=== PATIENT | female | born 1970 | race Caucasian/White ===

== ENCOUNTER → 2017-12-07 06:29 | Outpatient (CLI) | payer OTHER, SELFPAY ==
--- NOTE | 2017-12-07 | DI.CT.S_ITS ---
PROCEDURE: CT ANGIO CHEST PE PROTOCOL INDICATIONS: CHEST PAIN TECHNIQUE: After the administration of intravenous contrast, 2 mm thick sections acquired from the pulmonary apices to the posterior costophrenic angles. 3-dimensional maximum intensity projection (MIP) coronal and sagittal reformats were then acquired through the thorax. For radiation dose reduction, the following was used: automated exposure control, adjustment of mA and/or kV according to patient size. COMPARISON: formerly [facility], CHEST 2 VIEW, 07/02/2017, 10:35. FINDINGS: Image quality: Excellent. Pulmonary arteries: Pulmonary arteries are normal in size, and demonstrate no intraluminal filling defects to suggest central pulmonary embolism. Lungs and pleura: Lungs are clear. No pleural effusions or pneumothorax. Central and peripheral airways are patent. Mediastinum: Heart size is normal, without pericardial effusion. No mediastinal or hilar adenopathy. Thoracic aorta is normal in caliber and enhancement. Esophagus is normal in caliber, without hiatal hernia. Bones and chest wall: No suspicious bony lesions. Ribs and thoracic spine appear intact throughout. Thyroid gland appears normal. No axillary or supraclavicular adenopathy. Abdomen: Visualized upper abdominal solid organs appear normal in the early arterial phase of enhancement. IMPRESSION: Source of chest pain is not seen. No pulmonary embolus found. Dictated by: Lawson Randle M.D. on 12/07/2017 at 9:36 Approved by: Lawson Randle M.D. on 12/07/2017 at 9:38
== END ==
PROVIDERS: Visit Provider Internal Medicine
DX: R07.9 Chest pain, unspecified (principal)
CPT/HCPCS: 71275; Q9967

== ENCOUNTER → 2018-03-06 10:26 | Outpatient (CLI) | payer OTHER, SELFPAY ==
--- NOTE | 2018-03-06 | DI.RAD.S_ITS ---
PROCEDURE: XR FOOT LT MIN 3V INDICATIONS: PAIN IN LEFT FOOT TECHNIQUE: 3 views of the foot were acquired. COMPARISON: None. FINDINGS: Bones: A subtle lucency projects in the base of the fifth metatarsal. Elsewhere, no fractures or dislocations. No suspicious bony lesions. Minimal plantar and posterior calcaneal spurring. There is questionable flattening deformity of the second metatarsal head articular surface, with subchondral curvilinear sclerosis which is quite faint therefore recommend close clinical correlation Soft tissues: No tibiotalar joint effusion. Achilles tendon appears normal. IMPRESSION: Subtle lucency projecting in the base of the fifth metatarsal raising the possibility of nondisplaced possibly incomplete fracture. Please correlate clinically with point tenderness. Mild irregularity of the second metatarsal head articular surface as above, raising possibility of early Freiberg's infraction although please correlate clinically since the radiographic appearance is quite subtle, and technically indeterminate If the patient's symptoms do not improve, consider further evaluation with noncontrast MRI. Dictated by: Gilmer Frost M.D. on 03/06/2018 at 13:17 Approved by: Gilmer Frost M.D. on 03/06/2018 at 13:21
--- NOTE | 2018-03-06 | DI.RAD.S_ITS ---
PROCEDURE: XR ANKLE LT MIN 3V INDICATIONS: PAIN IN LEFT FOOT TECHNIQUE: 3 views of the ankle were acquired. COMPARISON: None. FINDINGS: Bones: No fractures or dislocations. Ankle mortise is normally aligned. No suspicious bony lesions. Minimal posterior and plantar calcaneal spurring Soft tissues: No tibiotalar joint effusion. Achilles tendon appears normal. IMPRESSION: Minimal plantar and posterior calcaneal spurring. Dictated by: Gilmer Frost M.D. on 03/06/2018 at 13:14 Approved by: Gilmer Frost M.D. on 03/06/2018 at 13:17
== END ==
PROVIDERS: Visit Provider Internal Medicine
DX: M79.672 Pain in left foot (principal)
CPT/HCPCS: 73610; 73630

== ENCOUNTER → 2018-10-23 10:33 | Outpatient (CLI) | payer OTHER, SELFPAY ==
--- NOTE | 2018-10-23 10:35 | DI.RAD.S_ITS ---
PROCEDURE: XR HIP W PEL IF DONE RT 2V INDICATIONS: right hip pain TECHNIQUE: AP pelvis with lateral view(s) of the right hip(s). COMPARISON: [facility], CR, [id number] W PEL IF PERFORMED, 01/10/2017, 15:03. FINDINGS: Bones: No fractures or dislocations. Pelvic ring appears intact. No suspicious bony lesions. No significant osteophytic spurring is seen but there is a slight difference in hip joint interspace width when comparing right to left. The right hip shows slight thinning Soft tissues: The visualized bowel gas pattern is normal. No suspicious soft tissue calcifications. IMPRESSION: Slight thinning of the joint interspace when on the right when compared to the left. This might represent evidence of minimal degenerative osteoarthritic change but it has not worsened from 01/10/17. Dictated by: Lawson Randle M.D. on 10/23/2018 at 11:12 Approved by: Lawson Randle M.D. on 10/23/2018 at 11:14
== END ==
PROVIDERS: PCP Nurse Practitioner Family; Visit Provider Nurse Practitioner Family
DX: M25.551 Pain in right hip (principal)
CPT/HCPCS: 73502

== ENCOUNTER → 2019-03-15 08:29 | Outpatient (CLI) | payer OTHER, SELFPAY ==
--- NOTE | 2019-03-15 08:31 | DI.MG.S_ITS ---
BILATERAL DIGITAL SCREENING MAMMOGRAM 3D/2D WITH CAD: 03/15/2019 CLINICAL: Routine screening. Family history of breast cancer. Comparison is made to exam dated: 06/11/2013 mammogram - [facility]. The tissue of both breasts is heterogeneously dense. This may lower the sensitivity of mammography. Current study was also evaluated with a Computer Aided Detection (CAD) system. No significant masses, calcifications, or other findings are seen in either breast. There has been no significant interval change. IMPRESSION: NEGATIVE There is no mammographic evidence of malignancy. A 1 year screening mammogram is recommended. This exam was interpreted at Station ID: [id number]. NOTE: For mammograms, a report in lay terms will be sent to the patient. Approximately 15% of breast malignancies will not be visualized mammographically. In the management of a palpable breast mass, a negative mammogram must not discourage biopsy of a clinically suspicious lesion. Electronically Signed By: Deja west/bright:03/17/2019 14:54:29 letter sent: Normal Exam ACR BI-RADS Category 1: Negative 3341F
== END ==
PROVIDERS: PCP Internal Medicine; Visit Provider Orthopaedic Surgery
DX: Z12.31 Encounter for screening mammogram for malignant neoplasm of breast (principal); Z80.3 Family history of malignant neoplasm of breast
CPT/HCPCS: 77063; 77067

== ENCOUNTER → 2020-02-23 12:03 | Outpatient (CLI) | payer OTHER, SELFPAY ==
[2020-02-23 12:32] LABS: Add Manual Diff / Slide Review NO; Basophils Absolute Auto 0 /uL (0-100); Basophils Percent Auto 0.7 % (0-2); Eosinophils Absolute Auto 300 /uL (0-450); Eosinophils Percent Auto 5.3 % (2-4); Hematocrit 35.6 % (36-46); Hemoglobin 11.8 g/dL (12.0-16.0); Lymphocytes Absolute Auto 1500 /uL (1100-4500); Mean Corpuscular HGB Conc 33.2 % (30-36); Mean Corpuscular Hemoglobin 28.5 PG (26-34); Mean Corpuscular Volume 86.1 fL (80-100); Monocytes Absolute Auto 300 /uL (0-900); Monocytes Percent Auto 5.3 % (3-14); Neutrophils Absolute Auto 4200 /uL (1500-7000); Neutrophils Percent Auto 65.7 % (50-75); Platelet Count 218 X10^3/uL (150-400); Red Blood Cell Count 4.14 X10^6/uL (4.0-5.2); Red Cell Distribution Width 16.2 % (11.6-14.8); White Blood Cell Count 6.5 X10^3/uL (4.5-11.0)
[2020-02-23 12:52] LABS: Alanine Aminotransferase 29 IU/L (<35); Albumin 4.4 g/dL (3.5-5.0); Albumin Globulin Ratio 1.3 (1.0-2.8); Alkaline Phosphatase 73 U/L (38-126); Aspartate Aminotransferase 29 IU/L (14-36); BUN Creatinine Ratio 21.4 (6-22); Bilirubin Total 0.4 mg/dL (0.2-1.3); Blood Urea Nitrogen 12 mg/dL (7-17); Calcium 9.4 mg/dL (8.4-10.2); Carbon Dioxide 29 mmol/L (22-32); Chloride 103 mmol/L (98-107); Estimated Glomerular Filt Rate > 60.0 mL/min (>60); Globulin 3.3 g/dL (1.7-4.1); Glucose 90 mg/dL (70-100); HEMOLYSIS < 15 (0-50); Potassium 4.4 mmol/L (3.4-5.1); Sodium 139 mmol/L (137-145); Total Protein 7.7 g/dL (6.3-8.2)
[2020-02-23 13:37] LABS: Pregnancy Test Serum,Qual Negative (Negative); UR Morphine/Opiate cutoff 300 Negative (Negative); Ur Creatinine Normal (Normal); Ur Specific Gravity Normal (Normal); Urine Amphetamines Negative (Negative); Urine Barbiturates Negative (Negative); Urine Benzodiazepines Negative (Negative); Urine Cocaine Negative (Negative); Urine MDMA Negative (Negative); Urine Methadone Negative (Negative); Urine Methamphetamines Negative (Negative); Urine Oxycodone Negative (Negative); Urine Phencyclidine Negative (Negative); Urine Tetrahydrocannabinol Positive (Negative); Urine Tricyclic Antidepressant Negative (Negative); Urine pH Normal (Normal)
[2020-02-23 15:08] LABS: Free T4, Direct Thyroxine 0.96 ng/dL (0.78-2.19)
[2020-02-23 15:21] LABS: Thyroid Stimulating Hormone 1.57 uIU/mL (0.47-4.68)
== END ==
PROVIDERS: PCP Family Medicine; Referring Provider Psychiatry & Neurology Psychiatry; Visit Provider Psychiatry & Neurology Psychiatry
DX: F33.2 Major depressive disorder, recurrent severe without psychotic features (principal)
CPT/HCPCS: 36415; 80053; 80305; 84439; 84443; 84703; 85025

== ENCOUNTER → 2021-09-30 09:14 | Outpatient (CLI) | payer OTHER, MEDICAID, SELFPAY ==
[2021-09-30 12:35] LABS: COVID-19 CEPHEID PCR (VTM/NP) Negative (Negative)
== END ==
PROVIDERS: Visit Provider Family Medicine Sleep Medicine
DX: Z20.822 Contact with and (suspected) exposure to COVID-19 (principal)
CPT/HCPCS: C9803; U0003; U0005

== ENCOUNTER → 2022-02-18 12:23 | Outpatient (CLI) | payer OTHER, MEDICAID, SELFPAY ==
--- NOTE | 2022-02-18 12:27 | DI.CT.S_ITS ---
PROCEDURE: CT FOOT LEFT WITHOUT CON INDICATIONS: Pain in lateral left foot TECHNIQUE: Noncontrast 1-1.5 mm axial sections acquired from above the tibiotalar joint to the bottom of the calcaneus, with coronal and sagittal reformats. COMPARISON: None. FINDINGS: Image quality: Excellent. Bones: No fractures or dislocation. No discrete bony erosions or periosteal reaction. The joint spaces appear preserved. Soft tissues: The visualized flexor, extensor, peroneal, and Achilles tendons appear intact. The visualized musculature appears preserved. No suspicious soft tissue calcifications. IMPRESSION: 1. No definite acute abnormality to correlate with patient's pain symptoms. If clinical concern persists, consider further evaluation with MRI. Dictated by: Silvestre Crockett M.D. on 02/20/2022 at 2:38 Approved by: Silvestre Crockett M.D. on 02/20/2022 at 2:43
--- NOTE | 2022-02-18 12:27 | DI.CT.S_ITS ---
PROCEDURE: CT HAND RIGHT WITHOUT CON INDICATIONS: Pain in right [id number]/4th MC TECHNIQUE: Noncontrast 1 mm axial sections acquired through the carpal bones, with coronal and sagittal reformats. COMPARISON: [facility], CR, XR HAND 3+ VIEWS RIGHT, 08/12/2021, 7:58. FINDINGS: Image quality: Excellent. Bones: No fractures or dislocation. No discrete bony erosions or periosteal reaction. Joint spaces appear preserved. No suspicious intraosseous lesions. Soft tissues: No suspicious soft tissue calcifications or discrete mass lesions. Visualized musculature appears preserved. The visualized flexor and extensor tendons appear intact. IMPRESSION: 1. No definite acute abnormality to correlate with patient's pain in the 3rd and 4th metacarpals. If clinical concern persists, consider further evaluation with MRI. Dictated by: Silvestre Crockett M.D. on 02/20/2022 at 2:32 Approved by: Silvestre Crockett M.D. on 02/20/2022 at 2:37
== END ==
PROVIDERS: PCP Internal Medicine; Referring Provider Internal Medicine; Visit Provider Internal Medicine
DX: M79.641 Pain in right hand (principal); M79.672 Pain in left foot
CPT/HCPCS: 73200; 73700

== ENCOUNTER → 2022-03-02 15:20 | Outpatient (CLI) | payer OTHER, MEDICAID, SELFPAY ==
--- NOTE | 2022-03-02 | DI.MRI.S_ITS ---
PROCEDURE: MR CERVICAL SPINE WO CON INDICATIONS: Other cervical disc degeneration TECHNIQUE: Noncontrast sagittal T1 spin echo and T2 fast spin echo, sagittal STIR, foraminal oblique sagittal T2 fast spin echo, and axial gradient echo or T2 fast spin echo through the cervical spine. COMPARISON: [facility], MR, C-SPINE WITHOUT CONTRAST, 02/16/2016, 9:00. FINDINGS: Image quality: Excellent. Alignment and Curvature: There is trace retrolisthesis of C6 on C7. Bone Marrow: Marrow demonstrates normal overall signal. Spinal Cord: Visualized spinal cord has normal size and signal. No cerebellar tonsillar herniation. Paraspinous Soft Tissues: No paravertebral masses. Prevertebral soft tissues are normal in thickness. Discs: Mild scattered disc desiccation most notable at C5-6. C2-C3: No disc bulge, spinal stenosis or foraminal narrowing. No interval change. C3-C4: No disc bulge, spinal stenosis or foraminal narrowing. No interval change. C4-C5: No disc bulge or spinal stenosis. Trace left foraminal narrowing slightly progressive. C5-C6: Prominent motion is present at this level limiting evaluation. There is appearance of disc bulge with overall appearance of moderate spinal stenosis. Foramina are poorly visualized secondary to motion. However, there is felt to be at least moderate to severe bilateral foraminal narrowing. C6-C7: Prominent motion is present this region limiting evaluation. Disc bulge is present with appearance likely [id number] spinal stenosis. Foramina are poorly visualized. However, there is felt to be likely bilateral foraminal narrowing at least moderate to severe on the left and likely [id number] on the right. C7-T1: No disc bulge, spinal stenosis or foraminal narrowing. IMPRESSION: Multilevel degenerative changes as above, relatively stable compared to prior exam. Dictated by: Darya Mckinley M.D. on 03/02/2022 at 21:59 Approved by: Darya Mckinley M.D. on 03/02/2022 at 22:02
== END ==
PROVIDERS: PCP Internal Medicine; Referring Provider Internal Medicine; Visit Provider Internal Medicine
DX: M47.812 Spondylosis without myelopathy or radiculopathy, cervical region (principal); M50.30 Other cervical disc degeneration, unspecified cervical region; M48.02 Spinal stenosis, cervical region
CPT/HCPCS: 72141

== ENCOUNTER → 2022-10-11 09:26 | Outpatient (CLI) | payer OTHER, MEDICAID, SELFPAY ==
--- NOTE | 2022-10-11 | DI.US.S_ITS ---
LIMITED ULTRASOUND OF LEFT BREAST AND AXILLA: 10/11/2022 CLINICAL: Additional views of left breast. Comparison is made to exams dated: 10/11/2022 ultrasound, 10/11/2022 mammogram - [facility], 09/20/2022 mammogram - [facility], and 03/15/2019 mammogram - [facility]. Color flow and real-time ultrasound of the left breast were performed. Galarza scale images of the real-time examination were reviewed. There is a 0.5 cm x 0.4 cm x 0.3 cm oval cyst in the left breast at 1 o'clock middle depth 4 cm from the nipple. This oval cyst is hypoechoic with internal echoes. This correlates with mammography findings. Color flow imaging demonstrates that there is no vascularity present. IMPRESSION: PROBABLY BENIGN The 0.5 cm complicated cyst in the left breast 1:00 is probably benign. A follow-up ultrasound in 6 months is recommended to demonstrate stability. Exam findings were conveyed to the patient. This exam was interpreted at Station ID: [id number]. Electronically Signed By: Jimy Tellez M.D. [facility]/:10/11/2022 11:24:40 letter sent: Followup Recommended Ultrasound BI-RADS: 3 Probably benign
--- NOTE | 2022-10-11 | DI.MG.S_ITS ---
UNILATERAL LEFT DIGITAL DIAGNOSTIC MAMMOGRAM 3D/2D WITH ADDITIONAL VIEWS: 10/11/2022 CLINICAL: Additional evaluation requested from prior study. Comparison is made to exams dated: 09/20/2022 mammogram - [facility], 03/15/2019 mammogram - [facility], and 06/11/2013 mammogram - [facility]. There are scattered areas of fibroglandular density in the left breast (category b / 25%-50% glandular tissue). There is a new 0.4 cm oval focal asymmetry with a circumscribed margin in the left breast at 1 o'clock middle depth. No other significant masses or calcifications are seen in the breast. IMPRESSION: INCOMPLETE: NEEDS ADDITIONAL IMAGING EVALUATION The new 0.4 cm oval focal asymmetry in the left breast resembles a cyst or a lymph node and is indeterminate. A targeted ultrasound is recommended and will immediately follow. Based on the Tyrer Cuzick model (a risk assessment model) the patient's lifetime risk is 7.6% and her 10 year risk is 1.7%. According to the ACR, ACS, and NCCN guidelines, an annual breast MRI exam along with mammogram is recommended if the patient's lifetime risk is 20% or greater. This exam was interpreted at Station ID: [id number]. NOTE: For mammograms, a report in lay terms will be sent to the patient. Approximately 15% of breast malignancies will not be visualized mammographically. In the management of a palpable breast mass, a negative mammogram must not discourage biopsy of a clinically suspicious lesion. Electronically Signed By: Jimy Tellez M.D. [facility]/:10/11/2022 10:09:42 ACR BI-RADS Category 0: Incomplete 3340F
== END ==
PROVIDERS: Family Provider Internal Medicine; PCP Internal Medicine; Referring Provider Internal Medicine; Visit Provider Internal Medicine
DX: R92.8 Other abnormal and inconclusive findings on diagnostic imaging of breast (principal)
CPT/HCPCS: 76642; 77065; G0279

== ENCOUNTER → 2023-05-16 12:18 | Outpatient (CLI) | payer OTHER, MEDICAID, SELFPAY ==
--- NOTE | 2023-05-16 | DI.US.S_ITS ---
LIMITED ULTRASOUND OF LEFT BREAST: 05/16/2023 CLINICAL: Patient returns today to evaluate a focal asymmetry in the left breast. Comparison is made to exams dated: 10/11/2022 ultrasound, 10/11/2022 mammogram - [facility], 09/20/2022 mammogram - [facility], and 03/15/2019 mammogram - [facility]. Color flow ultrasound of the left breast 1 o'clock region was performed. Galarza scale images of the real-time examination were reviewed. There is a 0.3 cm x 0.2 cm x 0.1 cm oval cyst in the left breast at 1 o'clock middle depth 4 cm from the nipple. This oval cyst is hypoechoic with internal echoes. This abnormality is decreased in size. Color flow imaging demonstrates that there is no vascularity present. IMPRESSION: PROBABLY BENIGN The 0.3 cm x 0.2 cm x 0.1 cm oval cyst in the left breast is probably benign. A follow-up mammogram and an ultrasound in 6 months is recommended to demonstrate stability. This exam was interpreted at Station ID: [id number]. Electronically Signed By: Marcell cobos/bright:05/16/2023 20:29:41 letter sent: Followup Recommended Ultrasound BI-RADS: 3 Probably benign
== END ==
PROVIDERS: Family Provider Internal Medicine; PCP Internal Medicine; Referring Provider Internal Medicine; Visit Provider Internal Medicine
DX: N60.02 Solitary cyst of left breast (principal)
CPT/HCPCS: 76642

== ENCOUNTER → 2023-09-05 06:41 | Outpatient (CLI) | payer MEDICARE, MEDICAID, SELFPAY ==
--- NOTE | 2023-09-05 06:44 | DI.ECHO.S_ITS ---
[place] [facility] : : [address] : : [place] : : [id number] : : Phone: [phone] Echocardiogram Report + + :Name: CHALINO LANDA Study Date: 09/05/2023 Height: 64 in : :[facility] ReadingLocation: Weight: 207 lb : : Gender: Female BSA: 2.0 m2 : :: 1970 Age: 52 yrs BP: 118/82 mmHg: :Reason For Study: CHEST PAIN : :Ordering Physician: JOANIE, : :CATHERINE Martinez Performed By: Wandy Sahu : :Referring: CATHERINE EMERSON : + + Interpretation Summary The ejection fraction is estimated to be 55-60%. Diastolic parameters suggest probable normal left ventricular diastolic function and normal filling pressures. The right ventricle is normal in size and function. No significant valvular abnormalities. Pulmonary artery pressures cannot be estimated because of the lack of a measurable TR jet velocity but the IVC suggests a CVP of around 3 mmHg. Procedure: A two-dimensional transthoracic echocardiogram with color flow and Doppler was performed. The study quality was technically adequate. There is no prior echocardiogram noted for this patient. The patient was in sinus rhythm with heart rates between 58-62 bpm during the exam. Left Ventricle: The left ventricle is normal in size. Left ventricular wall thickness is at the upper limits of normal. The ejection fraction is estimated to be 55-60%. Diastolic parameters suggest probable normal left ventricular diastolic function and normal filling pressures. Right Ventricle: The right ventricle is normal in size and function. Atria: The left atrial size is normal. Right atrial size is normal. There is no Doppler evidence for an interatrial shunt. Mitral Valve: The mitral valve is normal in structure and function. There is trace mitral regurgitation. Aortic Valve: The aortic valve is trileaflet. The aortic valve opens well. There is no aortic valve stenosis. No aortic regurgitation is present. Tricuspid Valve: The tricuspid valve is normal in structure and function. There is trace tricuspid regurgitation. Pulmonary artery pressures cannot be estimated because of the lack of a measurable TR jet velocity but the IVC suggests a CVP of around 3 mmHg. Pulmonic Valve: The pulmonic valve leaflets are thin and pliable; valve motion is normal. There is mild pulmonic regurgitation. Great Vessels: The aortic root is normal size. The dimensions of the ascending aorta are normal. The IVC is of normal diameter and collapses greater than 50% with a sniff. This suggests a low right atrial pressure of 3 mm Hg. Pericardium/ Pleura There is no pericardial effusion. There is no pleural effusion. MMode/2D Measurements & Calculations LVIDd: 4.8 cm LVOT diam: 2.0 cm LVIDs: 3.4 cm Ao root diam: 3.2 cm FS: 29.0 % asc Aorta Diam: 3.6 cm IVSd: 1.0 cm Ao Arch Diam (Prox Trans): 3.0 cm LVPWd: 1.0 cm LV mendez. diameter/BSA (cm/m^2): 2.4 LV sys. diameter/BSA (cm/m^2): 1.7 LA A2 area: 18.4 cm2 RA long axis: 4.8 cm LA A4 area: 16.8 cm2 RA area: 14.3 cm2 LA length (vol): 5.2 cm RA vol: 36.1 ml LA vol: 50.1 ml RA : 18.2 ml/m2 LA vol index: 25.2 ml/m2 IVC diam: 1.7 cm RVD1 (basal): 3.4 cm RVD2 (mid): 3.3 cm TAPSE: 1.9 cm Doppler Measurements & Calculations Ao V2 max: 123.3 cm/sec LVOT Max Mynor: 104.8 cm/sec Ao V2 mean: 84.6 cm/sec LV V1 max P.4 mmHg Ao max P.1 mmHg LV V1 VTI: 26.7 cm Ao mean P.2 mmHg REG(I,D): 2.9 cm2 Ao V2 VTI: 29.9 cm REG(V,D): 2.8 cm2 sev ratio: 0.89 REG indexed to BSA (cm^2/m^2): 1.5 MV E max mynor: 56.4 cm/sec PA V2 max: 87.9 cm/sec MV A max mynor: 44.8 cm/sec PA V2 mean: 63.8 cm/sec MV E/A: 1.3 PA mean P.8 mmHg Med Peak E' Mynor: 6.9 cm/sec PA pr(Accel): 22.5 mmHg E/E' med: 8.2 Lat Peak E' Mynor: 10.4 cm/sec E/E' lat: 5.4 E/e' average: 6.8 MV dec time: 0.24 sec SV(LVOT): 86.4 ml Reading Physician:11:29 AM
== END ==
LOC: ECHO 06:41
PROVIDERS: Family Provider Internal Medicine; PCP Internal Medicine; Referring Provider Internal Medicine Cardiovascular Disease; Visit Provider Internal Medicine Cardiovascular Disease
DX: I37.1 Nonrheumatic pulmonary valve insufficiency (principal); R07.9 Chest pain, unspecified
CPT/HCPCS: 93306

== ENCOUNTER → 2023-10-26 09:39 | Outpatient (CLI) | payer MEDICARE, MEDICAID, SELFPAY ==
--- NOTE | 2023-10-26 09:43 | DI.MG.S_ITS ---
BILATERAL DIGITAL DIAGNOSTIC MAMMOGRAM 3D/2D: 10/26/2023 CLINICAL: Patient returns for a 6 month follow up of the left breast, due for bilateral exam. Comparison is made to exams dated: 10/11/2022 mammogram - [facility], 09/20/2022 mammogram - [facility], 03/15/2019 mammogram, and 05/16/2023 ultrasound - [facility]. There are scattered areas of fibroglandular density in both breasts (category b / 25%-50% glandular tissue). In left breast, there is a 0.4 cm oval focal asymmetry at 1 o'clock middle depth, which is less prominent since 09/20/2022. No other significant masses, calcifications, or other findings are seen in either breast. IMPRESSION: INCOMPLETE: NEEDS ADDITIONAL IMAGING EVALUATION Left breast 0.4 cm focal asymmetry at 1 o'clock middle depth, less prominent since September 2022. An ultrasound is recommended for further evaluation and is scheduled to immediately follow this examination. Based on the Tyrer Cuzick model (a risk assessment model) the patient's lifetime risk is 7.7% and her 10 year risk is 1.8%. According to the ACR, ACS, and NCCN guidelines, an annual breast MRI exam along with mammogram is recommended if the patient's lifetime risk is 20% or greater. This exam was interpreted at Station ID: [id number]. NOTE: For mammograms, a report in lay terms will be sent to the patient. Approximately 15% of breast malignancies will not be visualized mammographically. In the management of a palpable breast mass, a negative mammogram must not discourage biopsy of a clinically suspicious lesion. Electronically Signed By: Brooklyn Argueta M.D., Ph.D. eb/:10/30/2023 02:35:00 Entry: - 10/30/2023 16:22:35 ACR BI-RADS Category 0: Incomplete 3340F
--- NOTE | 2023-10-26 09:44 | DI.US.S_ITS ---
LIMITED ULTRASOUND OF LEFT BREAST AND AXILLA: 10/26/2023 CLINICAL: Patient returns for short term follow-up of a probably benign mass in the left breast. Comparison is made to exams dated: 10/26/2023 mammogram, 05/16/2023 ultrasound, 10/11/2022 ultrasound, 10/11/2022 mammogram - [facility], and 09/20/2022 mammogram - [facility]. Real-time ultrasound of the left breast 1 o'clock, and axilla regions was performed. Galarza scale images of the real-time examination were reviewed. There is a 0.2 cm x 0.2 cm x 0.2 cm oval hypoechoic mass with circumscribed margins at 1 o'clock, 5 cm from the nipple (previously described at 4 cm from the nipple). This corresponds to the mammographic finding. The finding has decreased in size since September 2022. Color flow imaging demonstrates that there is no vascularity present. IMPRESSION: PROBABLY BENIGN Left breast 0.2 cm oval mass at 1 o'clock, decreased since September 2022. Finding is probably benign. Recommend follow-up left breast mammogram and ultrasound in 12 months to demonstrate 2 year stability. Patient will be due for bilateral mammogram at that time. Findings and recommendations were conveyed to the patient during today's evaluation. This exam was interpreted at Station ID: [id number]. Electronically Signed By: Brooklyn Argueta M.D., Ph.D. eb/:10/30/2023 02:35:48 letter sent: Followup Recommended Ultrasound BI-RADS: 3 Probably benign
[2023-10-26 10:36] LABS: Add Manual Diff / Slide Review NO; Basophils Absolute Auto 0 /uL (0-100); Basophils Percent Auto 0.7 % (0-2); Eosinophils Absolute Auto 800 /uL (0-450); Hematocrit 40.2 % (36-46); Hemoglobin 13.6 g/dL (12.0-16.0); Lymphocytes Absolute Auto 1800 /uL (1100-4500); Lymphocytes Percent Auto 29.7 % (25-40); Mean Corpuscular HGB Conc 33.7 % (30-36); Mean Corpuscular Hemoglobin 28.9 PG (26-34); Mean Corpuscular Volume 85.7 fL (80-100); Monocytes Absolute Auto 400 /uL (0-900); Monocytes Percent Auto 6.4 % (3-14); Neutrophils Absolute Auto 3100 /uL (1500-7000); Neutrophils Percent Auto 50.2 % (50-75); Platelet Count 213 X10^3/uL (150-400); Red Blood Cell Count 4.69 X10^6/uL (4.0-5.2); Red Cell Distribution Width 13.6 % (11.6-14.8); White Blood Cell Count 6.1 X10^3/uL (4.5-11.0)
[2023-10-26 10:42] LABS: Hemoglobin A1C% w Est Avg Glu 5.5 % (4.0-6.0)
[2023-10-26 11:06] LABS: Alanine Aminotransferase 60 IU/L (<35); Albumin 4.3 g/dL (3.5-5.0); Albumin Globulin Ratio 1.6 (1.0-2.8); Alkaline Phosphatase 75 U/L (38-126); Aspartate Aminotransferase 43 IU/L (14-36); BUN Creatinine Ratio 22.4 (6-22); Bilirubin Total 0.4 mg/dL (0.2-1.3); Blood Urea Nitrogen 15 mg/dL (7-17); Carbon Dioxide 29 mmol/L (22-32); Chloride 106 mmol/L (98-107); Cholesterol 225 mg/dL (140-199); Estimated Glomerular Filt Rate > 60 mL/min (>60); Globulin 2.7 g/dL (1.7-4.1); Glucose 92 mg/dL (70-100); HDL Cholesterol 46 mg/dL (40-60); HEMOLYSIS < 15 (0-50); LDL Cholesterol Calculated 136 mg/dL (<100); Magnesium 1.9 mg/dL (1.6-2.3); Potassium 4.1 mmol/L (3.4-5.1); Sodium 141 mmol/L (137-145); Triglycerides 214 mg/dL (35-150)
[2023-10-26 11:26] LABS: TSH w/ Reflex to FT4 0.96 uIU/mL (0.47-4.68)
== END ==
LOC: MAMMO 09:41
PROVIDERS: Family Provider Internal Medicine; PCP Internal Medicine; Referring Provider Internal Medicine; Visit Provider Internal Medicine
DX: R92.8 Other abnormal and inconclusive findings on diagnostic imaging of breast (principal); N63.21 Unspecified lump in the left breast, upper outer quadrant; N60.02 Solitary cyst of left breast; R92.323 Mammographic fibroglandular density, bilateral breasts; R00.2 Palpitations; Z13.1 Encounter for screening for diabetes mellitus; I10 Essential (primary) hypertension; E78.5 Hyperlipidemia, unspecified
CPT/HCPCS: 36415; 76642; 77066; 80053; 80061; 83036; 83735; 84443; 85025; G0279

== ENCOUNTER → 2024-01-08 07:35 | Outpatient (CLI) | payer MEDICARE, MEDICAID, SELFPAY ==
--- NOTE | 2024-01-08 | DI.NM.S_ITS ---
PROCEDURE: NM EXERCISE TREADMILL NON NUC COMPARISON: None. INDICATIONS: CHEST PAIN FINDINGS: The patient exercised for 7 minutes and 1 second reching 86% of maximum predicted heart rate. Appropriate BP response to exercise. 7MEs, TITO +9%. No angina, no ST changes, and no ectopy during exercise or recovery. IMPRESSION: Low risk, normal treadmill ECG only stress test with fair exercise tolerance (TITO +9%). Dictated by: Liliane Quijano MD on 01/09/2024 at 14:42 Approved by: Liliane Quijano MD on 01/09/2024 at 14:46
== END ==
PROVIDERS: Family Provider Internal Medicine; PCP Internal Medicine; Referring Provider Internal Medicine Cardiovascular Disease; Visit Provider Internal Medicine Cardiovascular Disease
DX: R07.9 Chest pain, unspecified (principal)
CPT/HCPCS: 93017

== ENCOUNTER → 2024-10-24 08:28 | Outpatient (CLI) | payer MEDICARE, MEDICAID, SELFPAY ==
--- NOTE | 2024-10-24 08:30 | DI.US.S_ITS ---
US breast LT limited, MM diagnostic mammo BI: 10/24/2024 BI-RADS: 1 CLINICAL: 53-year old female for bilateral diagnostic mammogram and left diagnostic breast ultrasound that is a follow-up to ultrasound, left on 10/26/2023. Tyrer- Cuzick lifetime risk of 7.8%. No personal or first-degree family history of breast cancer. Current reported family history of breast cancer: maternal aunt. PRIOR EXAMS 10/26/2023, 05/16/2023, 10/11/2022, 09/20/2022, 08/01/2022, 03/15/2019. MAMMOGRAPHY TECHNIQUE: 2D and 3D (tomosynthesis) digital mammographic views obtained, with additional images as needed for full coverage. Current study was also evaluated with a Computer Aided Detection (CAD) system. ULTRASOUND TECHNIQUE: Real-time frederick scale imaging of the area of clinical interest was performed with image documentation. TARGETED Left Breast Ultrasound: Real-time ultrasound exam was performed focused to area of clinical and/or imaging concern. DENSITY B. There are scattered areas of fibroglandular density. TISSUE COMPOSITION Left: Upper Outer at 1:00, 4 cm from nipple: (a) Homogeneous fatty. MAMMOGRAPHY FINDINGS Right: No suspicious mass, asymmetry, microcalcification, or other abnormality seen. Left: Upper Outer at 1:00, Middle depth: Previously described 4mm oval focal asymmetry decreased in size on follow up evaluations is not definitively seen on today's mammogram and presumably resolved. ULTRASOUND FINDINGS Left: Upper Outer at 1:00, 4 cm from nipple: Previously seen circumscribed hypoechoic mass is no longer visualized and is consistent with a benign process. There is no suspicious sonographic finding. No suspicious sonographic finding present. IMPRESSION: * No evidence of malignancy. RECOMMENDATIONS Bilateral * Annual screening mammography. COMMENTS: Findings and recommendations were conveyed to the patient during today's evaluation. OVERALL ASSESSMENT CATEGORY BI-RADS-1: Negative. The [employer] recommends annual screening mammography beginning at age 40 for women with average risk of breast cancer. ELECTRONICALLY SIGNED: Mazin Freed M.D. on 10/24/2024 at 10:21:26 AM PT Interpreting Station ID: [id number]
--- NOTE | 2024-10-25 10:28 | DI.MG.S_ITS ---
Patient Name: CHALINO LANDA date: 1970 Sex: F Attending Physician: George Indications: Date: 10/24/2024 10:21 At the request of: ROS REAGAN Procedure: MM diagnostic mammo BI US breast LT limited, MM diagnostic mammo BI: 10/24/2024 BI-RADS: 1 CLINICAL: 53-year old female for bilateral diagnostic mammogram and left diagnostic breast ultrasound that is a follow-up to ultrasound, left on 10/26/2023. Tyrer-Cuzick lifetime risk of 7.8%. No personal or first-degree family history of breast cancer. Current reported family history of breast cancer: maternal aunt. PRIOR EXAMS 10/26/2023, 05/16/2023, 10/11/2022, 09/20/2022, 08/01/2022, 03/15/2019. MAMMOGRAPHY TECHNIQUE: 2D and 3D (tomosynthesis) digital mammographic views obtained, with additional images as needed for full coverage. Current study was also evaluated with a Computer Aided Detection (CAD) system. ULTRASOUND TECHNIQUE: Real-time frederick scale imaging of the area of clinical interest was performed with image documentation. TARGETED Left Breast Ultrasound: Real-time ultrasound exam was performed focused to area of clinical and/or imaging concern. DENSITY B. There are scattered areas of fibroglandular density. TISSUE COMPOSITION Left: Upper Outer at 1:00, 4 cm from nipple: (a) Homogeneous fatty. MAMMOGRAPHY FINDINGS Right: No suspicious mass, asymmetry, microcalcification, or other abnormality seen. Continued Report - Page 2 of 2 Patient Name: CHALINO LANDA date: 1970 Sex: F Attending Physician: George Indications: Date: 10/24/2024 10:21 At the request of: ORS REAGAN Procedure: MM diagnostic mammo BI Left: Upper Outer at 1:00, Middle depth: Previously described 4mm oval focal asymmetry decreased in size on follow up evaluations is not definitively seen on today's mammogram and presumably resolved. ULTRASOUND FINDINGS Left: Upper Outer at 1:00, 4 cm from nipple: Previously seen circumscribed hypoechoic mass is no longer visualized and is consistent with a benign process. There is no suspicious sonographic finding. No suspicious sonographic finding present. IMPRESSION: * No evidence of malignancy. RECOMMENDATIONS Bilateral * Annual screening mammography. COMMENTS: Findings and recommendations were conveyed to the patient during today's evaluation. OVERALL ASSESSMENT CATEGORY BI-RADS-1: Negative. The [employer] recommends annual screening mammography beginning at age 40 for women with average risk of breast cancer. ELECTRONICALLY SIGNED: Mazin Freed M.D. on 10/24/2024 at 10:21:26 AM PT Interpreting Station ID: [id number]
== END ==
LOC: MAMMO 08:30
PROVIDERS: Family Provider Internal Medicine; PCP Student in an Organized Health Care Education/Training Program; Referring Provider Student in an Organized Health Care Education/Training Program; Visit Provider Student in an Organized Health Care Education/Training Program
DX: R92.8 Other abnormal and inconclusive findings on diagnostic imaging of breast (principal); N60.02 Solitary cyst of left breast; N64.4 Mastodynia; Z80.3 Family history of malignant neoplasm of breast
CPT/HCPCS: 76642; 77066; G0279

== ENCOUNTER → 2024-10-27 07:54 | Outpatient (CLI) | payer MEDICARE, MEDICAID, SELFPAY ==
--- NOTE | 2024-10-27 07:55 | DI.ECHO.S_ITS ---
[facility] +---------+ [facility] : : [address] : : [place] : : [id number] : : Phone: [phone] Echocardiogram Report + + :Name: CHALINO LANDA Study Date: 10/27/2024 Height: 64 in : :Hospital ReadingLocation: Weight: 200 lb : : Gender: Female BSA: 2.0 m2 : :: 1970 Age: 53 yrs BP: 117/77 mmHg: :Reason For Study: Palpitations : :Ordering Physician: : :ROS REAGAN Performed By: Elham Mccall : :Referring: ROS REAGAN : + + Interpretation Summary The ejection fraction is estimated to be 55-60%. Diastolic parameters suggest probable normal left ventricular diastolic function and normal filling pressures. The right ventricle is normal in size and function. No valvular abnormalities. Pulmonary artery pressures cannot be estimated because of the lack of a measurable TR jet velocity but the IVC suggests a CVP of around 3 mmHg. Compared to the prior study 09/05/2023, no change. Procedure: A two-dimensional transthoracic echocardiogram with color flow and Doppler was performed. The study quality was technically adequate. Comparison is made with the echocardiogram of 09-05-23. The heart rate ranged between 58-62 bpm during the study. Left Ventricle: The left ventricle is normal in size and wall thickness. The ejection fraction is estimated to be 55-60%. Diastolic parameters suggest probable normal left ventricular diastolic function and normal filling pressures. Right Ventricle: The right ventricle is normal in size and function. Atria: The left atrial size is normal. Right atrial size is normal. The interatrial septum grossly appears intact with no obvious evidence for an atrial septal defect. Mitral Valve: The mitral valve leaflets appear borderline thickened, but open well. There is no mitral regurgitation noted. Aortic Valve: The aortic valve is trileaflet. The aortic valve opens well. There is no aortic valve stenosis. No aortic regurgitation is present. Tricuspid Valve: The tricuspid valve leaflets are thin and pliable. No tricuspid regurgitation. Pulmonary artery pressures cannot be estimated because of the lack of a measurable TR jet velocity but the IVC suggests a CVP of around 3 mmHg. Pulmonic Valve: The pulmonic valve is not well seen, but is grossly normal. There is no pulmonic valvular regurgitation. Great Vessels: The aortic root is normal size. The ascending aorta is normal in size. The aortic arch is normal in size. The IVC is of normal diameter and collapses greater than 50% with a sniff. This suggests a low right atrial pressure of 3 mm Hg. Pericardium/ Pleura There is no pericardial effusion. There is no pleural effusion. MMode/2D Measurements & Calculations LVIDd: 4.9 cm LVOT diam: 2.0 cm LVIDs: 2.9 cm Ao root diam: 3.3 cm FS: 40.0 % asc Aorta Diam: 3.4 cm EPSS: 0.49 cm Ao Arch Diam (Prox Trans): 2.7 cm IVSd: 1.0 cm LVPWd: 0.63 cm LV mendez. diameter/BSA (cm/m^2): 2.5 LV sys. diameter/BSA (cm/m^2): 1.5 LA A2 area: 14.6 cm2 RA long axis: 5.7 cm LA A4 area: 21.3 cm2 RA area: 17.0 cm2 LA length (vol): 5.9 cm RA vol: 42.8 ml LA vol: 44.9 ml RA : 21.9 ml/m2 LA vol index: 23.0 ml/m2 IVC diam: 1.3 cm RVD1 (basal): 3.6 cm TAPSE: 2.2 cm Doppler Measurements & Calculations Ao V2 max: 132.3 cm/sec LVOT Max Mynor: 89.5 cm/sec Ao V2 mean: 91.9 cm/sec LV V1 max P.2 mmHg Ao max P.0 mmHg LV V1 VTI: 20.8 cm Ao mean P.9 mmHg REG(I,D): 2.2 cm2 Ao V2 VTI: 30.1 cm REG(V,D): 2.2 cm2 sev ratio: 0.69 REG indexed to BSA (cm^2/m^2): 1.1 MV E max mynor: 66.6 cm/sec PA V2 max: 90.9 cm/sec MV A max mynor: 55.9 cm/sec PA V2 mean: 65.0 cm/sec MV E/A: 1.2 PA mean P.9 mmHg Med Peak E' Mynor: 6.4 cm/sec PA pr(Accel): -3.2 mmHg E/E' med: 10.5 Lat Peak E' Mynor: 8.9 cm/sec E/E' lat: 7.5 E/e' average: 9.0 MV dec time: 0.22 sec SV(LVOT): 66.2 ml Reading Physician:04:11 PM
== END ==
PROVIDERS: Family Provider Internal Medicine; PCP Student in an Organized Health Care Education/Training Program; Referring Provider Student in an Organized Health Care Education/Training Program; Visit Provider Student in an Organized Health Care Education/Training Program
DX: R00.2 Palpitations (principal)
CPT/HCPCS: 93306

== ENCOUNTER → 2025-01-25 11:08 | Outpatient (CLI) | payer MEDICARE, MEDICAID, SELFPAY ==
--- NOTE | 2025-01-25 11:10 | DI.RAD.S_ITS ---
PROCEDURE: XR CERVICAL SPINE 2V OR 3V INDICATIONS: Neck pain - 2 view TECHNIQUE: 3 view(s) of the cervical spine were acquired. COMPARISON: [facility], MR, MR CERVICAL SPINE WO CON, 03/02/2022, 15:32. [facility] [place], CR, XR CERVICAL SPINE 2 OR 3 VIEWS, 09/20/2017, 13:48. FINDINGS: Bones: No fractures or dislocations to the C7-T1 level. The lateral masses of C1 appear intact on the odontoid view. No suspicious bony lesions. There is overall straightening of the normal cervical lordosis. Minimal anterolisthesis can be seen at the C4-C5 level. There is minimal retrolisthesis at C5-C6. Focal degenerative change is seen involving the C1-C2 interface anteriorly. There is at least moderate disc space narrowing seen at C5-C6, with associated endplate irregularity and sclerosis. Moderate disc space narrowing can be seen at C6-C7. Soft tissues: No prevertebral soft tissue swelling. IMPRESSION: Multiple levels of cervical spine degenerative change can be seen, which are overall worst at the C5-C6 level. If it would be helpful for clinical management decision making, please consider a dedicated cervical spine MRI for further evaluation (assuming that there is no contraindication). Dictated by: Hardik Rizvi M.D. on 01/25/2025 at 11:01 Approved by: Hardik Rizvi M.D. on 01/25/2025 at 11:03
== END ==
LOC: RAD 11:09
PROVIDERS: Family Provider Internal Medicine; PCP Student in an Organized Health Care Education/Training Program; Referring Provider Student in an Organized Health Care Education/Training Program; Visit Provider Student in an Organized Health Care Education/Training Program
DX: M47.812 Spondylosis without myelopathy or radiculopathy, cervical region (principal); M54.2 Cervicalgia
CPT/HCPCS: 72040

== ENCOUNTER → 2025-01-29 07:52 | Outpatient (CLI) | payer MEDICARE, MEDICAID, SELFPAY ==
--- NOTE | 2025-01-29 07:53 | DI.CT.S_ITS ---
PROCEDURE: CT CERVICAL SPINE WO CON INDICATIONS: Degenerative changes seen on X-ray TECHNIQUE: Noncontrast 3 mm thick sections acquired from the skull base to the T4 level. Sagittal and coronal reformats were then constructed. For radiation dose reduction, the following was used: automated exposure control, adjustment of mA and/or kV according to patient size. COMPARISON: None. FINDINGS: Image quality: Excellent. Bones: No fractures or dislocations. Visualized superior ribs are intact. Lower disc space narrowing and endplate sclerosis noted in the cervical spine particularly at C5-6 and C6-7. Associated mild to moderate central stenosis at C5-6 and C6-7. Soft tissues: Prevertebral soft tissues are normal in thickness. No paravertebral hematomas. No apical pneumothoraces. IMPRESSION: Mild degenerative disc disease and arthropathy lower cervical spine associated with mild to moderate central stenosis at C5-6 and C6-7. Approved by: Jarocho Baez M.D. on 01/29/2025 at 16:47
[2025-01-29 09:15] LABS: Alanine Aminotransferase 68 IU/L (<35); Albumin 4.7 g/dL (3.5-5.0); Albumin Globulin Ratio 1.5 (1.0-2.8); Alkaline Phosphatase 87 U/L (38-126); Blood Urea Nitrogen 15 mg/dL (7-17); Calcium 9.9 mg/dL (8.4-10.2); Carbon Dioxide 29 mmol/L (22-32); Chloride 101 mmol/L (98-107); Estimated Glomerular Filt Rate > 60 mL/min (>60); Globulin 3.2 g/dL (1.7-4.1); Glucose 114 mg/dL (70-99); HEMOLYSIS < 15 (0-50); Sodium 138 mmol/L (137-145); Total Protein 7.9 g/dL (6.3-8.2)
[2025-01-29 09:50] LABS: Potassium 4.3 mmol/L (3.4-5.1)
== END ==
LOC: CT 07:52
PROVIDERS: Family Provider Internal Medicine; PCP Student in an Organized Health Care Education/Training Program; Referring Provider Student in an Organized Health Care Education/Training Program; Visit Provider Student in an Organized Health Care Education/Training Program
DX: M50.322 Other cervical disc degeneration at C5-C6 level (principal); M47.812 Spondylosis without myelopathy or radiculopathy, cervical region; M48.02 Spinal stenosis, cervical region; E87.6 Hypokalemia
CPT/HCPCS: 36415; 72125; 80053

== ENCOUNTER → 2025-03-19 13:51 | Outpatient (CLI) | payer MEDICARE, MEDICAID, SELFPAY ==
--- NOTE | 2025-03-19 13:53 | DI.CT.S_ITS ---
PROCEDURE: CT HEAD/BRAIN WO CON INDICATIONS: Abnormal headaches TECHNIQUE: Noncontrast 4.5 mm thick angled axial sections acquired from the foramen magnum to the vertex, with coronal and sagittal reformats. For radiation dose reduction, the following was used: automated exposure control, adjustment of mA and/or kV according to patient size. COMPARISON: [facility], MR, BRAIN WITHOUT CONTRAST, 12/28/2016, 13:14. FINDINGS: Image quality: Streak artifact can be seen through the skull base. CSF spaces: Basal cisterns are patent. No extra-axial fluid collections. Ventricles are normal in size and shape. Brain: No midline shift. No intracranial mass effect or hemorrhage. Galarza- white matter interface is normal. Skull and face: Calvarium and visualized facial bones are intact, without suspicious lesions. Sinuses: There is moderate mucosal thickening within the maxillary sinuses, with milder mucosal thickening elsewhere within the paranasal sinuses. No abnormal fluid is seen within the mastoid air cells. IMPRESSION: Unremarkable intracranial study, without an imaging explanation found for the patient's presenting history of headache. To the limits of this noncontrast study, no findings of intracranial masses or mass effect can be seen. Dictated by: Hardik Rizvi M.D. on 03/20/2025 at 10:56 Approved by: Hardik Rizvi M.D. on 03/20/2025 at 10:58
--- NOTE | 2025-03-19 13:53 | DI.US.S_ITS ---
PROCEDURE: US EXTREMITY NONVASC LOWER LT INDICATIONS: Nodule of lower external leg TECHNIQUE: Real-time scanning was performed of the left inner posterior mid thigh area of concern , with image documentation. 7 images and 1 cine series. COMPARISON: None. FINDINGS: Subcutaneous oval-shaped approximately 1.9 x 1.1 x 0.7 cm [id number] structure left inter/posterior mid thigh in the area of concern possible lipoma however other soft tissue nodules/masses not excluded. No focal fluid collection. No significant increased color Doppler /vascular flow. IMPRESSION: Possible lipoma as discussed above. Dictated by: Drake Britt M.D. on 03/20/2025 at 12:19 Approved by: Drake Britt M.D. on 03/20/2025 at 12:31
--- NOTE | 2025-03-19 13:53 | DI.CT.S_ITS ---
PROCEDURE: CT CHEST WO CON INDICATIONS: H/O Lung nodule TECHNIQUE: Noncontrast 5 mm thick sections acquired from the pulmonary apices to the posterior costophrenic angles. 1 mm lung window, 5 mm thick coronal and sagittal and 7 mm axial MIP reformats were then acquired. For radiation dose reduction, the following was used: automated exposure control, adjustment of mA and/or kV according to patient size. COMPARISON: Outside Facility, CT, CT CHEST WO CON, 03/26/2024, 10:15. FINDINGS: Image quality: Diagnostic. Lower Neck: No enlarged lymph nodes. Thyroid: No thyroid nodules which require sonographic follow up, per consensus guidelines. Axillae: No enlarged lymph nodes. Chest Wall: Unremarkable. Bones: Unremarkable. Lungs and Pleura: No pneumothorax or pleural effusions. Stable appearance of the 4 mm parenchymal densities in the right middle lobe anteriorly, with a linear configuration on the sagittal images. Heart: Heart size is normal. No pericardial effusion. Thoracic Vessels: The aorta and pulmonary arteries demonstrate normal size. Mediastinum and Shayna: No enlarged lymph nodes. Esophagus: No wall thickening. No hiatal hernia. Upper Abdomen: Visualized upper abdomen solid organs and bowel loops appear normal. IMPRESSION: Stable appearance of small benign parenchymal densities in the right middle lobe, no significant lesion seen. Dictated by: Marvin Ballard M.D. on 03/20/2025 at 14:42 Approved by: Marvin Ballard M.D. on 03/20/2025 at 14:53
== END ==
LOC: CT 13:52
PROVIDERS: PCP Student in an Organized Health Care Education/Training Program; Referring Provider Student in an Organized Health Care Education/Training Program; Visit Provider Student in an Organized Health Care Education/Training Program
DX: R51.9 Headache, unspecified (principal); R91.1 Solitary pulmonary nodule; R22.41 Localized swelling, mass and lump, right lower limb; G89.29 Other chronic pain
CPT/HCPCS: 70450; 71250; 76882